=== PATIENT | male | born 1975 | race Caucasian/White ===

== ENCOUNTER 2017-12-18 23:47 | Emergency (ER) | payer SELFPAY ==
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
[2017-12-19 01:42] VITALS: TEMP 98.4
[2017-12-19 01:44] VITALS: BP 142/86; O2SAT 100
--- NOTE | 2017-12-19 06:13 | RAD REPORT ---
EXAM DESCRIPTION: Shoulder Right 2 View - 12/19/2017 1:29 am CLINICAL HISTORY: Right shoulder pain COMPARISON: None. TECHNIQUE: Internal and external rotation views of the right shoulder were obtained. FINDINGS: There is no fracture or dislocation. AC joint is normal in appearance. No acute or suspici ous findings. IMPRESSION: Negative two-view right shoulder examination.
== END 2017-12-19 01:37 | disposition home or self-care (01) ==
LOC: ER 23:47
DX: S40.011A Contusion of right shoulder, initial encounter (principal); Y35.811A Legal intervention involving manhandling, law enforcement official injured, initial encounter; Y92.9 Unspecified place or not applicable; F90.1 Attention-deficit hyperactivity disorder, predominantly hyperactive type; F20.9 Schizophrenia, unspecified; F31.9 Bipolar disorder, unspecified; F17.210 Nicotine dependence, cigarettes, uncomplicated
CPT/HCPCS: 99283